=== PATIENT | male | born 1960 | race Caucasian/White ===

== ENCOUNTER 2022-02-16 19:26 | Emergency (ER) | payer OTHER ==
[2022-02-16 23:19] LABS: BASOPHIL 0.4 % (0-2); EOSINOPHIL 1.4 % (0-5); HCT 29.9 % (42.0-52.0); HGB 9.4 g/dl (13.2-18.0); LYMPHOCYTE 26.4 % (15-48); MCH 21.9 pg (25.0-31.0); MCHC 31.4 g/dL (32.0-36.0); MCV 69.7 fL (78.0-100.0); MONOCYTE 11.4 % (0-12); MPV 8.3 fL (6.0-9.5); NEUTROPHIL 60.3 % (41-80); NRBC 0; PLT 296 K/uL (150-400); RBC 4.29 M/uL (4.70-6.00); RDW 20.5 % (11.5-14.0); WBC 9.5 K/uL (4.0-10.5)
[2022-02-16 23:35] LABS: ALBUMIN 3.5 g/dL (3.4-5.0); BILIRUBIN - TOTAL 0.5 mg/dL (0.2-1.0); BUN/CREAT RATIO (CALC) 17.7 RATIO; CREATININE 1.3 mg/dL (0.67-1.17); GLOBULIN (CALCULATION) 3.1 g/dL; POTASSIUM 3.9 mmol/L (3.5-5.1); TOTAL PROTEIN 6.6 g/dL (6.4-8.2)
[2022-02-17 01:01] LABS: HCT 31.4 % (42.0-52.0); HGB 9.6 g/dL (13.2-18.0)
[2022-02-17] MEDS ORDERED: NORCO 5-325 TA1 EACH PO (01:17)
== END 2022-02-17 01:40 | disposition home or self-care (01) ==
LOC: FER 19:26
PROVIDERS: Internal Medicine
DX: S80.12XA Contusion of left lower leg, initial encounter (principal); S80.11XA Contusion of right lower leg, initial encounter; S50.312A Abrasion of left elbow, initial encounter; M25.512 Pain in left shoulder; M25.511 Pain in right shoulder; I11.0 Hypertensive heart disease with heart failure; I50.9 Heart failure, unspecified; D64.9 Anemia, unspecified; V49.9XXA Car occupant (driver) (passenger) injured in unspecified traffic accident, initial encounter
CPT/HCPCS: 36415; 73030; 73590; 80053; 85014; 85018; 85025; 85379; J1170